=== PATIENT | female | born 1980 ===

== ENCOUNTER 2021-07-22 17:35 | Inpatient (IN) | payer OTHER ==
[~2021-07-22] VITALS: Ht 152.4 cm; Wt 68.5 kg
[2021-07-22] MEDS ORDERED: BENZ1TAB7 PO (18:19)
[2021-07-22] MEDS ORDERED: PROP10TA10 PO (18:19)
[2021-07-22] MEDS ORDERED: BUPR-319 PO (18:19)
[2021-07-22] MEDS ORDERED: AMOX-430 PO (18:19)
[2021-07-22] MEDS ORDERED: TEMA15CA PO (18:19)
[2021-07-22] MEDS ORDERED: ARIP5TAB10 PO (18:19)
[2021-07-22] MEDS ORDERED: ORAL CONTRACEPTIVE PO (18:19)
[2021-07-22] MEDS ORDERED: FLUO10CA26 PO (18:19)
[2021-07-22] MEDS ORDERED: DIVA500T2 PO (18:19)
[2021-07-22] MEDS ORDERED: IV NORMAL SALINE 1000 ML BAG IV ONE (18:45)
--- NOTE | 2021-07-22 19:29 | NUR ---
Xray at bedside
[2021-07-22 19:34] LABS: HEMATOCRIT 34.2 % (31.2-41.9); MEAN CORPUSCULAR HEMOGLOBIN 31.2 uug (24.7-32.8); MEAN CORPUSCULAR VOLUME 96.5 fL (75.5-95.3); PLATELET COUNT (AUTO) 489 K/uL (179-408)
[2021-07-22 19:43] LABS: CARBON DIOXIDE 27 mmol/L (21-32); CHLORIDE 102 mmol/L (98-107); CREATININE 0.9 mg/dL (0.6-1.3); GLUCOSE 99 mg/dL (74-106); POTASSIUM 4.4 mmol/L (3.5-5.1); UREA NITROGEN, BLOOD 14 mg/dL (7-18)
[2021-07-22] MEDS ORDERED: IV NS 1000 ML 1,000 ML IV ONE ×2 (19:45→23:15)
[2021-07-22 19:51] LABS: ALANINE AMINOTRANSFERASE 9 U/L (14-59); ALKALINE PHOSPHATASE 55 U/L (50-136); ASPARTATE AMINOTRANSFERASE 10 U/L (15-37); BILIRUBIN,DIRECT < 0.1 mg/dL (0.0-0.2); BILIRUBIN,TOTAL 0.1 mg/dL (0.2-1.0); TOTAL PROTEIN, SERUM 7.4 g/dL (6.4-8.2)
[2021-07-22 20:51] LABS: *BILIRUBIN,URIN NEGATIVE (NEGATIVE); *BLOOD, URINE 2+ (NEGATIVE); *CLARITY,URINE CLEAR (CLEAR); *COLOR,URINE YELLOW (YELLOW); *KETONES,URINE NEGATIVE (NEGATIVE); *UROBILINOGEN,URINE 0.2 E.U./dl (NORMAL); LEUKOCYTE ESTERASE ,URINE 1+ (NEGATIVE); NITRITE, URINE NEGATIVE (NEGATIVE); UGLUCOSE NEGATIVE (NEGATIVE)
--- NOTE | 2021-07-22 20:52 | NUR ---
in and out catheter inserted by gloria calvert.
[2021-07-22 21:05] LABS: *AMPHETAMINE, URINE NEGATIVE (NEGATIVE); *CANNABINOID, URINE NEGATIVE (NEGATIVE); *COCCAINE, URINE NEGATIVE (NEGATIVE); *OPIATE, URINE NEGATIVE (NEGATIVE); *PHENCYCLIDINE SCREEN,URINE NEGATIVE (NEGATIVE)
[2021-07-22] MEDS ORDERED: IOHEXOL 300MG/ML 100 ML INFUS..BTL ONE (21:21)
[2021-07-22] MEDS ORDERED: SWABABLE VALVE TRANSFER SET EA MC ONE (21:21)
[2021-07-22] MEDS ORDERED: IV NORMAL SALINE 250 ML IV ONE (21:22)
[2021-07-22 22:16] LABS: BACTERIA,URINE MODERATE /HPF (NONE SEEN); RBC,URINE 20-50 /HPF (0-3); SQUAMOUS EPITHELIAL CELL,UR FEW /HPF (NONE SEEN); WBC,URINE 20-50 /HPF (0-3)
[2021-07-23] MEDS ORDERED: CHOLECALCIFEROL 1,000 UNIT TABLET ONE (00:01)
[2021-07-23] MEDS ORDERED: levoFLOXacin 750 MG/D5W 150 ML PIGGYBACK IV ONE (01:00)
[2021-07-23] MEDS ORDERED: levoFLOXacin 750MG/D5W 150 ML IV ONE (01:46)
--- NOTE | 2021-07-23 02:01 | NUR ---
call placed to [facility] for panel doctor for [facility]
[2021-07-23] MEDS ORDERED: ACETAMINOPHEN 325 MG TABLET PO PRN (02:15)
[2021-07-23] MEDS ORDERED: ONDANSETRON 4 MG/2 ML VIAL IV PRN (02:15)
[2021-07-23] MEDS ORDERED: IV NS 1000 ML 1,000 ML IV ONE (02:15)
[2021-07-23] MEDS ORDERED: TEMAZEPAM 15 MG CAPSULE PO SCH (02:30)
--- NOTE | 2021-07-23 02:34 | NUR ---
Report given to Tika BROWNE.
[2021-07-23] MEDS ORDERED: VANCOMYCIN IV 1,000 MG in IV DEXTROSE 5% 250 ML IV SCH ×2 (03:00→08:00)
--- NOTE | 2021-07-23 03:05 | NUR ---
Admitted a 41 years old female with Dx of Septic Shock and 2ndary Dx of Renal Abscess. Patient AO to self only, mainly confused and disoriented. In no apparent distress. NSR on tele with HR of 95/min. IV site on right AC intact and patent. Incontinent of bladder and incontinent care rendered during admit. No sign or symptoms of SOB. Routine admission care done. Plan of care initiated. Safety measure initiated and call light within reached.
--- NOTE | 2021-07-23 03:16 | NUR ---
pt taken to room 317 via sera with all belongings
[2021-07-23 03:30] VITALS: BP 90/56
[2021-07-23] MEDS ORDERED: PIPERACILLIN/TAZOBACTAM/D5W 50 ML IV ONE (04:08)
[2021-07-23] MEDS ORDERED: TEMAZEPAM 15 MG CAPSULE PO PRN (05:32)
--- NOTE | 2021-07-23 05:37 | NUR ---
Patient AO to self only, confused and disoriented. In no apparent distress. Gets anxious and restless, trying to get OOB alone and unattended. Reorientation and redirection provided. Sinus tachy on tele with HR of 102/min. IV site on right AC intact and patent. No adverse reaction noted from IV antibiotic.
[2021-07-23] MEDS ORDERED: PIPERACILLIN SODIUM/TAZOBACTAM 3.375 G in IV DEXTROSE 5% 50 ML IV SCH ×4 (06:00)
[2021-07-23 06:57] LABS: MEAN CORPUSCULAR HEMOGLOBIN 31.5 uug (24.7-32.8); MEAN CORPUSCULAR VOLUME 95.1 fL (75.5-95.3); PLATELET COUNT (AUTO) 419 K/uL (179-408)
[2021-07-23 07:10] LABS: BILIRUBIN,TOTAL 0.1 mg/dL (0.2-1.0); CREATININE 0.8 mg/dL (0.6-1.3); MAGNESIUM 1.7 mg/dL (1.8-2.4); PHOSPHOROUS 2.4 mg/dL (2.5-4.9); POTASSIUM 3.5 mmol/L (3.5-5.1); TOTAL PROTEIN, SERUM 6.5 g/dL (6.4-8.2)
[2021-07-23 07:37] LABS: THYROID STIMULATING HORMONE 4.428 mIU/mL (0.358-3.740)
[2021-07-23] MEDS ORDERED: IV NORMAL SALINE 500 ML IV ONE (08:15)
--- NOTE | 2021-07-23 08:15 | NUR ---
Patient's blood pressure is 88/59. Skin is warm and dry. Hospitalist notified with new order to infuse 500ml bolus.
[2021-07-23 08:21] VITALS: BP 88/59
[2021-07-23] MEDS: BENZTROPINE MESYLATE 1 MG TABLET PO SCH (08:40)
[2021-07-23] MEDS: ARIPIPRAZOLE 5 MG TABLET PO SCH (08:40)
[2021-07-23] MEDS: buPROPion XL 150 MG TAB.SR.24H PO SCH (08:40)
[2021-07-23] MEDS: FLUOXETINE HCL 10 MG CAPSULE PO SCH (08:40)
[2021-07-23] MEDS: DIVALPROEX 250 MG TABLET.DR PO SCH ×2 (08:40→16:36)
[2021-07-23] MEDS ORDERED: PANTOPRAZOLE SODIUM 40 MG VIAL IV SCH (09:00)
[2021-07-23] MEDS ORDERED: DIVALPROEX 500 MG TABLET.DR PO SCH (09:00)
[2021-07-23] MEDS ORDERED: CONTRACEPTIVE PO SCH (09:00)
[2021-07-23] MEDS ORDERED: MAGNESIUM OXIDE 400 MG TABLET PO ONE (09:15)
[2021-07-23 09:49] VITALS: BP 102/69
--- NOTE | 2021-07-23 09:51 | NUR ---
IV bolus completed. Blood pressure 106/62. Continue normal routine NS. SR on monitor
[2021-07-23] MEDS: IV NS 1000 ML 1,000 ML IV PRN ×2 (10:54→18:07)
--- NOTE | 2021-07-23 11:23 | NUR ---
SEEN BY HOSPITALIST FOR FOLLOW-UP SEE NOTES
[2021-07-23 12:00] VITALS: BP 109/73
[2021-07-23] MEDS: PIPERACILLIN SODIUM/TAZOBACTAM 3.375 G in IV DEXTROSE 5% 50 ML IV SCH ×3 (12:34→23:36)
[2021-07-23] MEDS ORDERED: NEUTRA PHOS PACKET PO ONE (13:00)
[2021-07-23 17:02] VITALS: BP 100/64
[2021-07-23 20:00] VITALS: BP 102/60
[2021-07-24] MEDS ORDERED: VANCOMYCIN IV 1,000 MG in IV DEXTROSE 5% 250 ML IV SCH ×2
[2021-07-24] MEDS: VANCOMYCIN IV 1,000 MG in IV DEXTROSE 5% 250 ML IV SCH ×2 (00:45→16:25)
[2021-07-24 04:42] VITALS: BP 95/60
[2021-07-24] MEDS: PIPERACILLIN SODIUM/TAZOBACTAM 3.375 G in IV DEXTROSE 5% 50 ML IV SCH ×3 (05:32→17:48)
[2021-07-24 07:24] LABS: CREATININE 0.8 mg/dL (0.6-1.3); MAGNESIUM 2.1 mg/dL (1.8-2.4); POTASSIUM 3.8 mmol/L (3.5-5.1)
[2021-07-24] MEDS: buPROPion XL 150 MG TAB.SR.24H PO SCH (08:06)
[2021-07-24] MEDS: ARIPIPRAZOLE 5 MG TABLET PO SCH (08:06)
[2021-07-24] MEDS: PANTOPRAZOLE SODIUM 40 MG TABLET.DR PO SCH (08:06)
[2021-07-24] MEDS: DIVALPROEX 250 MG TABLET.DR PO SCH ×2 (08:06→16:24)
[2021-07-24] MEDS: FLUOXETINE HCL 10 MG CAPSULE PO SCH (08:06)
[2021-07-24] MEDS: BENZTROPINE MESYLATE 1 MG TABLET PO SCH (08:20)
[2021-07-24] MEDS: IV NS 1000 ML 1,000 ML IV PRN (09:55)
[2021-07-24 15:17] VITALS: BP 130/85
[2021-07-24 20:09] VITALS: BP 126/82
[2021-07-25] MEDS: PIPERACILLIN SODIUM/TAZOBACTAM 3.375 G in IV DEXTROSE 5% 50 ML IV SCH ×5 (00:01→23:49)
[2021-07-25 05:21] VITALS: BP 130/55
[2021-07-25] MEDS: PANTOPRAZOLE SODIUM 40 MG TABLET.DR PO SCH (06:08)
[2021-07-25] MEDS: IV NS 1000 ML 1,000 ML IV PRN (06:09)
--- NOTE | 2021-07-25 06:57 | NUR ---
Pt slept intermittently. Pt confused but able to answer questions at times. IV site intact. Pt able to ambulate but bed alarm is on for safety. Tolerated all medications given. Safety maintained throughout the shift. Will endorse to day shift.
[2021-07-25] MEDS ORDERED: PANTOPRAZOLE SODIUM 40 MG TABLET.DR PO SCH (07:00)
[2021-07-25] MEDS: DIVALPROEX 250 MG TABLET.DR PO SCH ×2 (08:07→16:27)
[2021-07-25] MEDS: buPROPion XL 150 MG TAB.SR.24H PO SCH (08:08)
[2021-07-25] MEDS: FLUOXETINE HCL 10 MG CAPSULE PO SCH (08:08)
[2021-07-25] MEDS: ARIPIPRAZOLE 5 MG TABLET PO SCH (08:08)
[2021-07-25] MEDS: BENZTROPINE MESYLATE 1 MG TABLET PO SCH (08:08)
[2021-07-25 08:10] LABS: HEMATOCRIT 32.6 % (31.2-41.9); MEAN CORPUSCULAR HEMOGLOBIN 31.7 uug (24.7-32.8); MEAN CORPUSCULAR VOLUME 95.8 fL (75.5-95.3); PLATELET COUNT (AUTO) 295 K/uL (179-408)
[2021-07-25 09:35] LABS: POTASSIUM 3.9 mmol/L (3.5-5.1)
[2021-07-25] MEDS ORDERED: VANCOMYCIN IV 1,000 MG in IV DEXTROSE 5% 250 ML IV SCH ×2 (10:00→15:45)
[2021-07-25 11:02] VITALS: BP 115/79
[2021-07-25 15:10] VITALS: BP 110/78
[2021-07-25 20:54] VITALS: BP 106/67
[2021-07-26] MEDS ORDERED: VANCOMYCIN IV 1,000 MG in IV DEXTROSE 5% 250 ML IV SCH ×4
[2021-07-26 04:35] VITALS: BP 104/85
[2021-07-26] MEDS: PIPERACILLIN SODIUM/TAZOBACTAM 3.375 G in IV DEXTROSE 5% 50 ML IV SCH (05:08)
[2021-07-26] MEDS: PANTOPRAZOLE SODIUM 40 MG TABLET.DR PO SCH (06:41)
[2021-07-26] MEDS: DIVALPROEX 250 MG TABLET.DR PO SCH ×2 (09:44→17:40)
[2021-07-26] MEDS: FLUOXETINE HCL 10 MG CAPSULE PO SCH (09:46)
[2021-07-26] MEDS: ARIPIPRAZOLE 5 MG TABLET PO SCH (09:46)
[2021-07-26] MEDS: buPROPion XL 150 MG TAB.SR.24H PO SCH (09:46)
[2021-07-26] MEDS: BENZTROPINE MESYLATE 1 MG TABLET PO SCH (09:47)
[2021-07-26 11:14] VITALS: BP 102/74
[2021-07-26] MEDS ORDERED: SULF1TAB48 PO (11:45)
[2021-07-26 20:32] VITALS: BP 99/72
[2021-07-27 04:10] VITALS: BP 112/72
[2021-07-27] MEDS: PANTOPRAZOLE SODIUM 40 MG TABLET.DR PO SCH (06:03)
--- NOTE | 2021-07-27 06:33 | NUR ---
Pt slept intermittently throughout the night. Standby assist to bathroom. No significant changes noted. All needs attended. Call light placed within reach. Will endorse to next shift.
[2021-07-27] MEDS: ARIPIPRAZOLE 5 MG TABLET PO SCH (08:21)
[2021-07-27] MEDS: BENZTROPINE MESYLATE 1 MG TABLET PO SCH (08:21)
[2021-07-27] MEDS: DIVALPROEX 250 MG TABLET.DR PO SCH (08:22)
[2021-07-27] MEDS: FLUOXETINE HCL 10 MG CAPSULE PO SCH (08:22)
[2021-07-27] MEDS: buPROPion XL 150 MG TAB.SR.24H PO SCH (08:22)
[2021-07-27 11:04] VITALS: BP 93/63
--- NOTE | 2021-07-27 11:35 | NUR ---
dc orders received noted and carried out,dc instruction and education given to the pt dc heplock per md orders,pt left the facility via ambulances in stable condition
== END 2021-07-27 11:35 | DRG 463 ==
LOC: ER 17:37 → TELE3 07-23 02:43 → MEDSURG3 07-23 12:32
PROVIDERS: ADMIT Nurse Practitioner Acute Care; ATTEND Nurse Practitioner Acute Care
DX: N10 Acute pyelonephritis (principal); G92.8 Other toxic encephalopathy; E44.0 Moderate protein-calorie malnutrition; N15.1 Renal and perinephric abscess; E87.2 Acidosis; E88.09 Other disorders of plasma-protein metabolism, not elsewhere classified; Z20.822 Contact with and (suspected) exposure to COVID-19; Z68.29 Body mass index [BMI] 29.0-29.9, adult; F25.1 Schizoaffective disorder, depressive type; F19.10 Other psychoactive substance abuse, uncomplicated
CPT/HCPCS: 36415; 70450; 71045; 83605; 83735; 84100; 84443; 84484; 85025; 85730; 87040; 87086; 93005; A4663; C1758; C9113; G0378; J1956; J2543; J3370; J3490; J7040; J7050; Q9967